=== PATIENT | female | born 1965 | race Caucasian/White ===

== ENCOUNTER 2016-05-24 06:39 | Day surgery (SDC) | payer BC ==
[2016-05-24] MEDS ORDERED: Lidocaine 1%/Sod Bicarbonate in NS 8.4% 1 ML Syringe IV PRN (07:00)
[2016-05-24] MEDS ORDERED: Lactated Ringers 1,000 ML IV SCH (07:00)
[2016-05-24] MEDS ORDERED: Sodium Chloride 0.9% 10 ML Syringe FLUSH PRN (07:00)
--- NOTE | 2016-05-24 07:08 | PCM.PREANE ---
Preanesthetic Assessment - Anesthesia/Transfusion/Family Hx Anesthesia History: Prior Anesthesia Without Reaction Family History of Anesthesia Reaction: No - Review of Systems General: No Symptoms Pulmonary: No Symptoms Cardiovascular: No Symptoms Gastrointestinal: No symptoms Neurological: No Symptoms Other: Reports: Thyroid Problems - Physical Assessment NPO Status Date: 05/23/16 NPO Status Time: 21:30 Pulse: 72 O2 Sat by Pulse Oximetry: 96 Respiratory Rate: 16 Blood Pressure: 119/73 Temperature: 97.1 F Height: 5 ft 6 in Weight: 109 kg ASA Class: 2 Mental Status: Alert & Oriented x3 Airway Class: Mallampati = 1 Dentition: Reports: Normal Dentition Thyro-Mental Finger Breadths: 3 Mouth Opening Finger Breadths: 3 ROM/Head Extension: Full Lungs: Clear to auscultation, Normal respiratory effort Cardiovascular: Regular Rate, Regular Rhythm - Allergies Allergies/Adverse Reactions: Allergies Allergy/AdvReac Type Severity Reaction Status Date / Time No Known Allergies Allergy Verified 05/21/16 15:32 - Blood Blood Available: No - Anesthesia Plan Pre-Op Medication Ordered: None - Acknowledgements Anesthesia Type Planned: MAC Pt an Appropriate Candidate for the Planned Anesthesia: Yes Alternatives and Risks of Anesthesia Discussed w Pt/Guardian: Yes Pt/Guardian Understands and Agrees with Anesthesia Plan: Yes PreAnesthesia Questionnaire HEENT History: Reports: None Cardiovascular History: Reports: None Respiratory History: Reports: Sleep apnea Gastrointestinal History: Reports: Other (see below) Other Gastrointestinal History: Fistula Genitourinary History: Reports: None STUDENT ACCOUNTS COORDINATOR History: Reports: Other (see below) Other OB/BYN History: Menorrhagia Musculoskeletal History: Reports: None Neurological History: Reports: None Psychiatric History: Reports: None Endocrine/Metabolic History: Reports: Hypothyroidism, Obesity/BMI 30+ Hematologic History: Reports: None Immunologic History: Reports: None Oncologic (Cancer) History: Reports: None Dermatologic History: Reports: None - Infectious Disease History Infectious Disease History: Reports: None - Past Surgical History Head Surgeries/Procedures: Reports: Other (see below) (wisdom teeth) HEENT Surgical History: Reports: None Cardiovascular Surgical History: Reports: None Respiratory Surgical History: Reports: None GI Surgical History: Reports: None Female Surgical History: Reports: Other (see below) Other Female Surgeries/Procedures: Cervical polyp removed Endocrine Surgical History: Reports: None Neurological Surgical History: Reports: None Musculoskeletal Surgical History: Reports: None Oncologic Surgical History: Reports: None Dermatological Surgical History: Reports: None - SUBSTANCE USE Smoking Status *Q: Never Smoker Tobacco Use Within Last Twelve Months: No Second Hand Smoke Exposure: No Days Per Week of Alcohol Use: 1 (rarely) Recreational Drug Use History: No - HOME MEDS Home Medications: Home Meds Ferrous Sulfate [Iron] 325 mg PO DAILY 05/21/16 [History] Multivitamin [Multivitamins] 1 tab PO DAILY 05/21/16 [History] Thyroid [[place]shine Thyroid] 120 mg PO DAILY 05/21/16 [History] - CURRENT (IN HOUSE) MEDS Current Meds: Current Medications Lactated Ringer's (Ringers, Lactated) 1,000 mls @ 125 mls/hr IV ASDIRECTED ZEYAD Stop: 05/24/16 23:00 Lidocaine/Sodium Bicarbonate (Buffered Lidocaine 1% In Ns 8.4%) 0.25 ml IV ONETIME PRN PRN Reason: Prior to IV Start Stop: 05/24/16 18:00 Sodium Chloride (Saline Flush) 10 ml FLUSH ASDIRECTED PRN PRN Reason: Keep Vein Open Stop: 05/24/16 18:00 Discontinued Medications Fentanyl (Sublimaze) Confirm Administered Dose 100 mcg .ROUTE .STK-MED ONE Stop: 05/24/16 07:11 Lidocaine HCl (Xylocaine-Mpf 1%) Confirm Administered Dose 4 mls @ as directed .ROUTE .STK-MED ONE Stop: 05/24/16 07:12 Midazolam HCl (Versed 1 Mg/Ml) Confirm Administered Dose 2 mg .ROUTE .STK-MED ONE Stop: 05/24/16 07:12 Propofol (Diprivan 20 Ml) Confirm Administered Dose 200 mg .ROUTE .STK-MED ONE Stop: 05/24/16 07:11 Preanesthetic Assessment - ALLERGIES Allergies/Adverse Reactions: Allergies Allergy/AdvReac Type Severity Reaction Status Date / Time No Known Allergies Allergy Verified 05/21/16 15:32
[2016-05-24] MEDS ORDERED: Propofol 200 MG/20 ML SDV ONE (07:10)
[2016-05-24] MEDS ORDERED: fentaNYL 100 MCG/2 ML SDV ONE (07:10)
[2016-05-24] MEDS ORDERED: Lidocaine 1% 4 ML ONE (07:11)
[2016-05-24] MEDS ORDERED: Midazolam 1 MG/ML 2 ML SDV ONE (07:11)
--- NOTE | 2016-05-24 07:42 | PCM48HPAN ---
Post Anesthesia Note - EVALUATION WITHIN 48HRS OF ANESTHETIC Vital Signs in Normal Range: Yes Patient Participated in Evaluation: Yes Respiratory Function Stable: Yes Airway Patent: Yes Cardiovascular Function Stable: Yes Hydration Status Stable: Yes Pain Control Satisfactory: Yes Nausea and Vomiting Control Satisfactory: Yes Mental Status Recovered: Yes
[2016-05-24 07:45] VITALS: BP 98/55
--- NOTE | 2016-05-24 07:54 | PCM.OPNOTE ---
- General Post-Op/Procedure Note Date of Surgery/Procedure: 05/24/16 Operative Procedure(s): colonoscopy with cecal and descending colonic polypectomy with cold forceps Findings: 1. two less than 5 mm cecal and descending colon polyps 2. anterior anal fistula Pre Op Diagnosis: anal fistula Post-Op Diagnosis: 1. anterior anal fistula. 2. 2 diminutive colon polyps Anesthesia Technique: MAC, Moderate sedation Primary Surgeon: Karlos Burrell Pathology: 2 small polyps EBL in mLs: 0 Complications: None Condition: Good Free Text/Narrative:: After adequate IV sedation and analgesia was obtained the patient was placed on her left side. Perianal inspection revealed a fistulous opening at the 8:00 position anteriorly. There was a tubular tract, heading straight back to the anterior midline. The opening was about 2-1/2-3 cm from the anal verge. Digital rectal examination revealed no anal pathology and I could not digitally appreciate the internal opening. A lubricated colonoscope was inserted into the rectum then advanced to the cecum without difficulty. The bowel preparation was excellent. Adjacent to the appendiceal orifice was a very small polyp, which was removed with cold forceps. The ascending colon, and transverse colons were otherwise unremarkable with no inflammatory changes or mass lesions seen. In the descending colon about 40 cm from the anal verge there was another small polyp, which was removed. The specimen was retrieved and the biopsy site was hemostatic. The sigmoid and rectum in 2 views was unremarkable. Commercial Management Accountant photographs were taken for the record and for the patient. Air was removed, as I finished the procedure, which she tolerated well and there were no complications.
== END 2016-05-24 08:27 | disposition home or self-care (01) ==
LOC: JD.SDS 06:39
PROVIDERS: ATTEND Surgery
PROC: 0DBH8ZX Excision of Cecum, Via Natural or Artificial Opening Endoscopic, Diagnostic (ICD-10-PCS; principal; 2016-05-24)
PROC: 0DBM8ZX Excision of Descending Colon, Via Natural or Artificial Opening Endoscopic, Diagnostic (ICD-10-PCS; 2016-05-24)
DX: K60.3 Anal fistula (principal); D12.0 Benign neoplasm of cecum; D12.4 Benign neoplasm of descending colon; E03.9 Hypothyroidism, unspecified; G47.30 Sleep apnea, unspecified; N92.0 Excessive and frequent menstruation with regular cycle; Z79.899 Other long term (current) drug therapy
CPT/HCPCS: 45380; J2250; J3010; J7120; 00810; J2704

== ENCOUNTER 2016-05-26 08:22 | Day surgery (SDC) | payer BC ==
[~2016-05-26 08:22] MED LIST: Lactated Ringers 1,000 ML IV SCH; Lidocaine 1%/Sod Bicarbonate in NS 8.4% 1 ML Syringe IV PRN; Sodium Chloride 0.9% 10 ML Syringe FLUSH PRN
[2016-05-26] MEDS ORDERED: Ertapenem 1 GM in Sodium Chloride 0.9% 100 ML IV ONE (08:50)
[2016-05-26] MEDS ORDERED: Midazolam 1 MG/ML 2 ML SDV ONE (09:21)
[2016-05-26] MEDS ORDERED: Bupivacaine 0.5%/EPINEPHrine 1:200,000 50 ML MDV ONE (09:21)
[2016-05-26] MEDS ORDERED: fentaNYL 100 MCG/2 ML SDV ONE (09:21)
[2016-05-26] MEDS ORDERED: Propofol 200 MG/20 ML SDV ONE (09:21)
[2016-05-26] MEDS ORDERED: Lidocaine 1% 30 ML SDV ONE (09:21)
[2016-05-26] MEDS ORDERED: Lidocaine 1% 4 ML ONE (09:21)
--- NOTE | 2016-05-26 09:26 | PCM.PREANE ---
Preanesthetic Assessment - Anesthesia/Transfusion/Family Hx Anesthesia History: Prior Anesthesia Without Reaction - Physical Assessment O2 Sat by Pulse Oximetry: 96 Respiratory Rate: 16 Vital Signs: Last Vital Signs Temp 36.4 C 05/26/16 08:55 Pulse 60 05/26/16 08:55 Resp 16 05/26/16 08:55 BP 128/78 05/26/16 08:55 Pulse Ox 96 05/26/16 08:55 Height: 1.68 m Weight: 109 kg - Allergies Allergies/Adverse Reactions: Allergies Allergy/AdvReac Type Severity Reaction Status Date / Time No Known Allergies Allergy Verified 05/25/16 16:20 PreAnesthesia Questionnaire HEENT History: Reports: None Cardiovascular History: Reports: None Respiratory History: Reports: Sleep apnea Gastrointestinal History: Reports: None Other Gastrointestinal History: Fistula Genitourinary History: Reports: None PEDIATRIC NURSE PRACTITIONER History: Reports: Other (see below) Other OB/BYN History: cervical polyp, menorrhagia Musculoskeletal History: Reports: None Neurological History: Reports: None Psychiatric History: Reports: None Endocrine/Metabolic History: Reports: Hypothyroidism Hematologic History: Reports: None Immunologic History: Reports: None Oncologic (Cancer) History: Reports: None Dermatologic History: Reports: None - Infectious Disease History Infectious Disease History: Reports: None - Past Surgical History Head Surgeries/Procedures: Reports: None GI Surgical History: Reports: Colonoscopy - SUBSTANCE USE Smoking Status *Q: Never Smoker Tobacco Use Within Last Twelve Months: No Second Hand Smoke Exposure: No Days Per Week of Alcohol Use: 1 (rarely) Recreational Drug Use History: No - HOME MEDS Home Medications: Home Meds Ferrous Sulfate [Iron] 325 mg PO DAILY 05/21/16 [History] Multivitamin [Multivitamins] 1 tab PO DAILY 05/21/16 [History] Thyroid [[place] Thyroid] 120 mg PO DAILY 05/21/16 [History] - CURRENT (IN HOUSE) MEDS Current Meds: Current Medications Lactated Ringer's (Ringers, Lactated) 1,000 mls @ 125 mls/hr IV ASDIRECTED ZEYAD Stop: 05/26/16 23:59 Ertapenem 1 gm/ Sodium (Chloride) 100 mls @ 100 mls/hr IV ONETIME ONE Stop: 05/26/16 09:49 Lidocaine/Sodium Bicarbonate (Buffered Lidocaine 1% In Ns 8.4%) 0.25 ml IV ONETIME PRN PRN Reason: Prior to IV Start Stop: 05/26/16 23:59 Sodium Chloride (Saline Flush) 10 ml FLUSH ASDIRECTED PRN PRN Reason: Keep Vein Open Stop: 05/26/16 23:59 Discontinued Medications Fentanyl (Sublimaze) Confirm Administered Dose 100 mcg .ROUTE .STK-MED ONE Stop: 05/26/16 09:22 Lidocaine HCl (Xylocaine-Mpf 1%) Confirm Administered Dose 4 mls @ as directed .ROUTE .STK-MED ONE Stop: 05/26/16 09:22 Midazolam HCl (Versed 1 Mg/Ml) Confirm Administered Dose 2 mg .ROUTE .STK-MED ONE Stop: 05/26/16 09:22 Propofol (Diprivan 20 Ml) Confirm Administered Dose 200 mg .ROUTE .STK-MED ONE Stop: 05/26/16 09:22 Preanesthetic Assessment - ANESTHESIA/TRANSFUSION/FAMILY HX Anesthesia/Transfusion History: No Prior Transfusion(s), Prior Anesthesia Type of Anesthesia Reaction: Reports: Unknown Family History of Anesthesia Reaction: No Intubation History: Unknown Type of Transfusion Reactions: Reports: Unknown - REVIEW OF SYSTEMS Constitutional: Reports: no symptoms HUMAN RESOURCES COMPENSATION ANALYST: Reports: no symptoms Respiratory: Reports: no symptoms Cardiovascular: Reports: no symptoms GI: Reports: no symptoms Other: Reports: Thyroid Problems (hypothyroidism controlled with medications ) - PHYSICAL ASSESSMENT O2 Sat by Pulse Oximetry: 96 RR: 16 Vital Signs: Last Vital Signs Temp 36.4 C 05/26/16 08:55 Pulse 60 05/26/16 08:55 Resp 16 05/26/16 08:55 BP 128/78 05/26/16 08:55 Pulse Ox 96 05/26/16 08:55 Height: 1.68 m Weight: 109 kg NPO Status Date: 05/25/16 NPO Status Time: 22:00 ASA Class: 2 Mental Status: Alert & Oriented x3 Airway Class: Mallampati = 1 Dentition: Reports: Missing Tooth/Teeth (missing 1 right bottom molar ) Thyro-Mental Finger Breadths: 3 Mouth Opening Finger Breadths: 3 ROM/Head Extension: Full Respiratory Status: lungs clear to auscultation bilaterally Cardiovascular Status: regular rate & rhythm, normal S1, S2, no murmur, blood pressure WNL - ALLERGIES Allergies/Adverse Reactions: Allergies Allergy/AdvReac Type Severity Reaction Status Date / Time No Known Allergies Allergy Verified 05/25/16 16:20 - BLOOD Blood Available: No Product(s) Available: None - ANESTHESIA PLAN Preop Beta Amna: No Anesthesia Type Planned: MAC - ACKNOWLEDGEMENTS Pt an Appropriate Candidate for the Planned Anesthesia: Yes Alternatives and Risks of Anesthesia Discussed w Pt/Guardian: Yes Pt/Guardian Understands and Agrees with Anesthesia Plan: Yes
--- NOTE | 2016-05-26 10:24 | PCM.OPNOTE ---
- General Post-Op/Procedure Note Date of Surgery/Procedure: 05/26/16 Operative Procedure(s): fistulotomy Findings: low transphincteric anterior anal fistula Pre Op Diagnosis: anterior anal fistula Post-Op Diagnosis: low transphincteric anterior anal fistula Anesthesia Technique: Local, MAC, Moderate sedation Primary Surgeon: Karlos Burrell Pathology: none EBL in mLs: 0 Complications: None Condition: Good Free Text/Narrative:: After adequate IV sedation and analgesia was given the patient was placed in the prone jackknife position with her buttocks taped. The perianal region was prepped with Betadine and draped sterilely. Inspection revealed the fistula about 2-1/2 cm from the anal verge located at the 8 o'clock position. There was a tubular tract extending straight back towards the dentate line. I gave local analgesia in the area and then inserted a probe and cauterized the skin and subcutaneous tissue over the fistula unroofing it cutting through the lower aspect of the anal sphincters which appeared to be a low transsphincteric fistula. Hemostasis was obtained with cautery. I placed Surgicel in the fistulotomy site, and gauze dressing.
[2016-05-26 10:31] VITALS: BP 117/59
== END 2016-05-26 11:15 | disposition home or self-care (01) ==
LOC: JD.SDS 08:22
PROVIDERS: ATTEND Surgery
DX: K60.3 Anal fistula (principal); E03.9 Hypothyroidism, unspecified; G47.33 Obstructive sleep apnea (adult) (pediatric); E66.9 Obesity, unspecified; Z79.899 Other long term (current) drug therapy
CPT/HCPCS: 46280; A9270; J1335; J2250; J3010; J7030; J7120; 00902; J2704

== ENCOUNTER 2020-07-10 19:25 | Emergency (ER) | payer BC ==
[2020-07-10 19:48] VITALS: BP 150/88; PULSE 67
[2020-07-10] MEDS ORDERED: Acetaminophen 325 MG Tab PO ONE (22:11)
--- NOTE | 2020-07-10 23:03 | EDM.PDOC ---
ED HPI GENERAL MEDICAL PROBLEM - General Chief Complaint: Lower Extremity Injury/Pain Stated Complaint: POSS BLOOD CLOT IN LT LEG Time Seen by Provider: 07/10/20 20:45 Source of Information: Reports: Patient History Limitations: Reports: No Limitations - History of Present Illness INITIAL COMMENTS - FREE TEXT/NARRATIVE: 54-year-old female presents the emergency department today with complaints of pain to her left calf. She states that this has been ongoing for the past 2 weeks however it has progressively gotten worse to the point where she can barely ambulate. She states the pain is behind the left knee. She denies any shortness of breath, cough. She denies taking any hormone supplementation. She is not a smoker. 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 She denies any recent fever, chills, nausea, vomiting or diarrhea. States her only significant medical history is hypothyroidism. She has been taking ibuprofen over the course of the past 2 weeks and today she also took Aleve which she states does not help. She did see a chiropractor yesterday thinking that it was her knee however the chiropractor did evaluate her and told her that it is not her knee. Left Lower Leg Pain Score (Numeric/FACES): 4 - Related Data Allergies Allergy/AdvReac Type Severity Reaction Status Date / Time No Known Allergies Allergy Verified 07/10/20 19:47 Home Meds: Home Meds Levothyroxine Sodium [Levothyroxine] 150 mcg PO DAILY 07/10/20 [History] oxyCODONE HCl/Acetaminophen [Endocet 5-325 Tablet] 1 each PO Q6H #10 tablet 07/10/20 [Rx] Past Medical History HEENT History: Reports: None Cardiovascular History: Reports: None Respiratory History: Reports: Sleep Apnea Gastrointestinal History: Reports: None Other Gastrointestinal History: Fistula Genitourinary History: Reports: None OTOLARYNGOLOGY PHYSICIAN History: Reports: Other (See Below) Other OTOLARYNGOLOGY PHYSICIAN History: cervical polyp, menorrhagia Musculoskeletal History: Reports: None Neurological History: Reports: None Psychiatric History: Reports: None Endocrine/Metabolic History: Reports: Hypothyroidism, Obesity/BMI 30+ Hematologic History: Reports: None Immunologic History: Reports: None Oncologic (Cancer) History: Reports: None Dermatologic History: Reports: None - Infectious Disease History Infectious Disease History: Reports: None - Past Surgical History GI Surgical History: Reports: Colonoscopy Female Surgical History: Reports: Other (See Below) Other Female Surgeries/Procedures: Cervical polyp removed Social & Family History - Tobacco Use Tobacco Use Status *Q: Never Tobacco User - Caffeine Use Caffeine Use: Reports: Coffee - Recreational Drug Use Recreational Drug Use: No Review of Systems - Review of Systems Review Of Systems: Comprehensive ROS is negative, except as noted in HPI. ED EXAM, GENERAL - Physical Exam Exam: See Below Exam Limited By: No Limitations General Appearance: Alert, WD/WN, Mild Distress Ears: Normal External Exam, Hearing Grossly Normal Nose: Normal Inspection Throat/Mouth: Normal Inspection, Normal Lips, Normal Voice, No Airway Compromise Head: Atraumatic Neck: Normal Inspection, Supple Respiratory/Chest: No Respiratory Distress, Lungs Clear, No Accessory Muscle Use Cardiovascular: Normal Peripheral Pulses, Regular Rate, Rhythm, No Edema Peripheral Pulses: 2+: Dorsalis Pedis (L), Dorsalis Pedis (R) GI/Abdominal: No Distention (Female) Exam: Deferred Rectal (Female) Exam: Deferred Back Exam: Normal Inspection Extremities: Normal Inspection, Normal Range of Motion, No Pedal Edema, Normal Capillary Refill. No: Non-Tender (Tenderness noted to left popliteal space ) Neurological: Alert, Oriented, Normal Cognition Psychiatric: Normal Affect, Normal Mood Skin Exam: Warm, Dry, Intact, Normal Color, No Rash Lymphatic: No Adenopathy Course - Vital Signs Text/Narrative:: 54-year-old female presents with pain to the left calf. This has been ongoing for the past 2 weeks. She states it has progressively gotten worse. Most significant amount of pain is noted to the left upper calf just below the popliteal space. She states the pain is so extreme that she can hardly ambulate today. She is unable to flex her calf. She denies any shortness of breath. Patient does have tenderness to the left popliteal space with palpitation. There is no erythema or edema noted to the left lower extremity. Pedal pulses are palpable. Nursing staff has placed an order for the patient to have a ultrasound of the left lower extremity to rule out DVT. Last Recorded V/S: Last Vital Signs Temp 98.6 F 07/10/20 19:44 Pulse 67 07/10/20 19:44 Resp 18 07/10/20 19:44 BP 150/88 H 07/10/20 19:44 Pulse Ox 94 L 07/10/20 19:44 - Orders/Labs/Meds Orders: Active Orders 24 hr Category Date Time Status Foot Comp Min 3V Lt [CR] Stat Exams 07/10/20 22:11 Stop Req Venous Doppler Lwr Ext Bi [US] Stat Exams 07/10/20 20:34 Taken Meds: Medications Discontinued Medications Generic Name Dose Route Start Last Admin Trade Name Freq PRN Reason Stop Dose Admin Oxycodone/Acetaminophen 1 tab 07/10/20 23:16 Acetaminophen/Oxycodone 325-5 Mg Tab PO 07/10/20 23:17 ONETIME ONE - Re-Assessments/Exams Free Text/Narrative Re-Assessment/Exam: 07/10/20 23:22 [facility] radiologist impression: No evidence of deep vein thrombosis in bilateral lower extremities Patient will be discharged to home. I have ordered for her to receive a Percocet before she is discharged. I will send a prescription for some pain medication to her pharmacy. Recommend that she follow-up with Dr. Thomas in the clinic at his available appointment. Departure - Departure Time of Disposition: 23:23 Disposition: Home, Self-Care 01 Condition: Good Clinical Impression: Pain in left lower leg - Discharge Information Prescriptions: oxyCODONE HCl/Acetaminophen [Endocet 5-325 Tablet] 1 each PO Q6H #10 tablet Referrals: PCP,None [Primary Care Provider] - Forms: ED Department Discharge Additional Instructions: You were seen in the emergency department today with complaints of pain to your left calf and pain behind your knee. An ultrasound of both of your lower extremities were completed and this showed that you do not have a blood clot. 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 Treatment for this is rest, elevation and ibuprofen or Aleve. You may use heat or ice for comfort. While elevating the left leg, it is a good idea to flex and extend the foot. Recommend that you follow-up with Dr. Thomas if this does not get any better. The phone number to the [facility] is [phone]. I have sent a prescription for Percocet tabs to your pharmacy. You can take 1 tab every 6 hours as needed for more severe pain. Should your condition worsen or change, do not hesitate returning to the emergency department. Sepsis Event Note (ED) - Evaluation Sepsis Screening Result: No Definite Risk - Focused Exam Vital Signs: Vital Signs Temp Pulse Resp BP Pulse Ox 07/10/20 19:44 98.6 F 67 18 150/88 H 94 L - My Orders Last 24 Hours: My Active Orders 07/10/20 20:34 Venous Doppler Lwr Ext Bi [US] Stat - Assessment/Plan Last 24 Hours: My Active Orders 07/10/20 20:34 Venous Doppler Lwr Ext Bi [US] Stat
[2020-07-10] MEDS ORDERED: Acetaminophen/oxyCODONE 325-5 MG Tab PO ONE (23:16)
--- NOTE | 2020-07-11 08:46 | US ---
Bilateral lower extremity deep venous ultrasound: Duplex and color Doppler evaluation was performed to the right and left common femoral, proximal greater saphenous, superficial femoral, popliteal, posterior tibial and peroneal veins. Comparison: No prior venous imaging is available. Findings: Normal phasic flow, augmentation and compression is seen within the deep veins. Impression: 1. No evidence of deep venous thrombosis within the right or left lower extremities. Diagnostic code #1 I agree with preliminary report from [facility] finalized on 0 07/10/20, 11:17 PM CDT, code 1
== END 2020-07-10 23:45 | disposition home or self-care (01) ==
LOC: JD.ED 19:25
DX: M79.662 Pain in left lower leg (principal); E03.9 Hypothyroidism, unspecified; E66.9 Obesity, unspecified; Z79.899 Other long term (current) drug therapy; Z68.41 Body mass index [BMI] 40.0-44.9, adult
CPT/HCPCS: 93970; 99283; A9270